=== PATIENT | female | born 1935 | race Caucasian/White ===

== ENCOUNTER 2022-01-22 04:45 | Emergency (ER) | payer MEDICARE ==
[2022-01-22 05:26] LABS: HEMOGLOBIN 14.9 gm/dl (12.3-15.3); RED BLOOD COUNT 4.74 M/UL (4.00-5.10); WHITE BLOOD COUNT 8.6 K/UL (4.5-11.0)
== END 2022-01-22 06:05 | disposition home or self-care (01) ==
LOC: ER1 04:45
PROVIDERS: Physician Assistant
DX: R04.0 Epistaxis (principal); I10 Essential (primary) hypertension; E78.5 Hyperlipidemia, unspecified; Z90.89 Acquired absence of other organs; Z88.2 Allergy status to sulfonamides; Z51.81 Encounter for therapeutic drug level monitoring
CPT/HCPCS: 85025; 85610; 85730; 99283